=== PATIENT | male | born 1955 | race Caucasian/White ===

== ENCOUNTER → 2018-11-02 | Outpatient (CLI) | payer OTHER ==
[~2018-11-02] VITALS: Ht 177.8 cm; Wt 95.3 kg
[~2018-11-02] MED LIST: ASPIR-TRIN325 MG PO; CENTRUM SILVER1 EAC2 PO; FISH OIL 1,001000 M2 PO; HYDROCHLOROTHIA25 M2 PO; IBUPROFEN 800800 M1 PO; LIPITOR 20 MG T20 M1 PO; LISINOPRIL40 MG PO; PROTONIX40 M1 PO
[2018-11-02 13:18] VITALS: BP 144/98
--- NOTE | 2018-11-02 13:58 | NUR ---
Pain Clinic Assessment: 1. History of Osteoarthritis: Not Applicable History of Rheumatoid Arthritis: Not Applicable 2. Height: 5 ft. 10 in. 177.8 cm. Weight: 210.0 lb. oz. 95.256 kg. Patient's BMI: 30.1 3. Vital Signs: BP: 144/98 Pulse: 76 Resp: 16 Temp: 02 Sat: 97 ECG Mon: 4. Pain Intensity: 7 5. Fall Risk: Dizziness: N Needs help standing or walking: N Fallen in the last 3 months: N Fall risk comments: 6. Patient on Blood Thinner: None 7. History of Hypertension: Y 8. Opioid Therapy greater than 6 weeks: N Opiate Contract Signed: 9. Risk Assessment Tool Provided: 10. Functional Assessment Tool: 11. Recreational Drug Use: Never Drug Type: Tobacco Use: Never Smoker Tobacco Type: Amount or Packs/day: How Many Years: Alcohol Use: Yes Frequency: Special Occasions Quant: 1-2
--- NOTE | 2018-11-09 09:14 | HPC ---
[facility] [address] [place] [address] PAIN MANAGEMENT CONSULTATION Name: SHI CABRERA Room #: REG DANIELIla Villafana.#: [id number] Admission: 11/02/18 ������������������ Attend Phys: Dipak Hargrove DO Discharge: ������������������ Date of : 59 Report #: [id number] THIS REPORT FOR: //name// CC: ALONSO Zaldivar DATE OF SERVICE: 11/02/2018 CHIEF COMPLAINT: Low back pain, bilateral lower extremity pain. HISTORY OF PRESENT ILLNESS: As you know, the patient is a 63-year-old male with longstanding history of low back pain that has been present for an extended period of time. He states in August 2018, he had a change in his overall pain. He began to experience buttock pain, posterolateral thigh pain that was different from his SI joint pain he had in the past. He trialed [id number] conservative medication management, which did not provide much in the way of improvement. He continues to participate in daily physical activity, stretching exercises he learned with previous back problems. He continues that on a daily basis. He continues to experience pain to the point where he was subsequently referred to see Neurosurgery in regards to findings of recent MRI dated 10/06/2018, which showed L4-L5 severe central canal stenosis with greater than 50% loss of central canal space. It was determined at the visit with Neurosurgery that he would look towards epidural injections initially. If that did not improve the patient's overall pain, then possibly look for surgical options. He was then referred to our clinic to discuss epidural injections under fluoroscopic guidance. The patient indicates today, pain is continuous and steady with brief exacerbation of symptoms. He describes pain as burning, shocking, jolting, electrical, numbness and tingling. Places current pain score at 7/10, daily average at 8/10, worst pain has been is 8+/10. The patient states that certain movements, sudden changes, pushing and pulling tends to exacerbate symptoms. Pain is improved with sitting, lying down, repositioning and stretching. He has been referred to our service to discuss treatment options for suspected lumbar radiculopathy secondary to spinal stenosis. PAST MEDICAL HISTORY: 1. Hypertension. 2. Gallbladder disease. 3. Gastroesophageal reflux disease. 4. Dyslipidemia. PAST SURGICAL HISTORY: [facility] [address] [place] [address] PAIN MANAGEMENT CONSULTATION Name: SHI CABRERA Room #: REG SADI Oconnor#: [id number] Admission: 11/02/18 ������������������ Attend Phys: Dipak Hargrove DO Discharge: ������������������ Date of : 59 Report #: [id number] 1. Cholecystectomy. 2. Tonsillectomy. SOCIAL HISTORY: The patient denies tobacco, IV or illicit drug use. Admits to occasional alcohol beverage. 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 He is working, not receiving workmen's compensation nor is he trying to obtain disability benefits. He is not in litigation in regards to pain. He is accompanied by his present in room today. REVIEW OF SYSTEMS: Positive only for low back pain, bilateral buttock and posterolateral thigh pain, hypertension, dyslipidemia and gastroesophageal reflux disease. All other review of systems negative per 12-point review of systems other than those listed in history of present illness. Pain impact score 28/70 indicating mild to moderate interference of daily activities secondary to pain. IMAGING: MRI of lumbar spine obtained on 10/06/2018 shows L1-L2 with central disk protrusion with only mild changes of the thecal sac reduction to 1 cm. At L2-L3, there is a left central disk protrusion measuring approximately 3 mm, thecal sac measures 9 mm. L3-L4 left foraminal/far lateral herniation of 4 mm with reduction of thecal sac to 8 mm. L4-L5, there is a central disk herniation measuring 6 mm reducing the thecal sac to 6 mm, severe central canal stenosis. L5-S1 diffuse disk bulge, central canal protrusion measuring 4 mm. This leads to reduction of the canal to 8 mm. ALLERGIES: NO REPORTED DRUG ALLERGIES. CURRENT MEDICATIONS: Pantoprazole 40 mg once a day, hydrochlorothiazide 25 mg per day, lisinopril 40 mg per day, atorvastatin 20 mg per day, multivitamin 1 tablet per day, omega-3 fish oil 1 tablet per day, aspirin 325 mg per day and ibuprofen 800 mg t.i.d. PHYSICAL EXAMINATION: VITAL SIGNS: Blood pressure 144/98, pulse 76, respiratory rate 16 and unlabored. The patient is 97% on room air. Height 5 feet 10 inches tall, weight 210 pounds, BMI calculated 30.1. GENERAL: Well-developed, well-nourished, well-hydrated 63-year-old male appearing stated age, placing current pain score at 7/10. HEENT: Normocephalic, atraumatic. Pupils equal, round, reactive to light. Extraocular muscles are intact. Sclerae nonicteric without injection. NEUROLOGIC: Cranial nerves 2-12 grossly intact. Speech is fluent. The patient deemed a good historian. LUNGS: Clear. No wheeze, rhonchi or rales. CARDIOVASCULAR: Regular. No appreciable gallop, no rub. ABDOMEN: Soft. Normoactive bowel sounds. [address] [address] PAIN MANAGEMENT CONSULTATION Name: SHI CABRERA Room #: REG SADI Oconnor#: [id number] Admission: 11/02/18 ������������������ Attend Phys: Dipak Hargrove DO Discharge: ������������������ Date of : 59 Report #: [id number] EXTREMITIES: Show no clubbing, no cyanosis and no edema. MUSCULOSKELETAL: Lower extremity strength equal and symmetrical 5/5, intact to light touch from L1 through S2 dermatomes. Seated straight leg raising negative. Supine straight leg raising positive on right, mild negative left. Ankle clonus negative. Babinski's negative. Muscle bulk and tone equal and symmetrical when comparing left lower extremity to right. Deep tendon reflexes 2+/4 patella and Achilles. Lumbar provocation testing is met with increasing axial back pain. No radiation of symptoms. ASSESSMENT: 1. Symptomatic lumbar radiculopathy. 2. Spinal stenosis of lumbar spine. 3. Displacement of lumbar intervertebral disk with radiculopathy. 4. Lumbosacral spondylosis with radiculopathy. 5. Lumbar degeneration. 6. Chronic intractable pain. PLAN: 1. Based on today's physical exam and history the patient has provided, the description the patient uses in regards to pain, the factors that exacerbate symptoms and improve symptoms as well as the findings of his MRI, the likely source of the patient's pain is lumbar radiculopathy secondary to spinal stenosis noted at the L4-L5 level. We discussed with the patient treatment options for lumbar radicular symptoms based on the various treatment protocols for lumbar radiculopathy secondary to spinal stenosis. We discussed the following with the patient today as viable treatment options to treat his symptoms. We discussed physical therapy, stretching exercises, core strengthening in a formalized fashion. The patient apparently has undergone physical therapy and continues to do the activities at home. He does note some benefit with the continued activities at home. We discussed medication management, utilizing neuropathic pain medications and a consistent nonsteroidal anti-inflammatory. We discussed the epidural injections under fluoroscopic guidance for which the patient was referred to our clinic. We also discussed surgical options with the patient today. After reviewing risks and benefits of all the proposed treatment options, the patient chose to move forward with a lumbar epidural injection. 2. The patient was advised that third constitution party payer restrictions require the authorization be obtained before the patient could undergo the epidural injection under fluoroscopic guidance requested. We will begin the authorization process immediately. Once we have the authorization, we will have the patient return to undergo the first in a series of lumbar epidural injections. 3. No medication changes made at today's visit. The patient will continue current medical therapy as previously prescribed. 4. We will see the patient back in followup visit [place] [address] PAIN MANAGEMENT CONSULTATION Name: SHI CABRERA Room #: REG SADI Oconnor#: [id number] Admission: 11/02/18 ������������������ Attend Phys: Dipak Hargrove DO Discharge: ������������������ Date of : 59 Report #: [id number] authorization for the patient to undergo the requested epidural injection. 5. We wish to thank Dr. Grissom, the patient's neurosurgeon as well as the patient's nurse practitioner, Catina Coates for the opportunity to see the patient in consultation. We will keep you apprised of his response to treatment as we address his lumbar radicular symptoms secondary to spinal stenosis. Again, we wish to thank you for the opportunity to see the patient in consultation. ��������������������������������������������� <ELECTRONICALLY SIGNED> ���������������������������������������� By: Dipak Hargrove DO ��������������������������������������������� 11/09/18 0914 1711 [id number] Dipak Hargrove DO /nt
== END ==
LOC: PAIN 08:29
DX: M47.26 Other spondylosis with radiculopathy, lumbar region (principal); M48.061 Spinal stenosis, lumbar region without neurogenic claudication; M51.16 Intervertebral disc disorders with radiculopathy, lumbar region; I10 Essential (primary) hypertension; K21.9 Gastro-esophageal reflux disease without esophagitis; G89.4 Chronic pain syndrome; E78.5 Hyperlipidemia, unspecified; Z90.49 Acquired absence of other specified parts of digestive tract; Z79.82 Long term (current) use of aspirin; Z79.899 Other long term (current) drug therapy

== ENCOUNTER → 2018-11-03 | Outpatient (CLI) | payer OTHER ==
[~2018-11-03] VITALS: Ht 177.8 cm; Wt 97.7 kg
[2018-11-03 11:07] VITALS: BP 126/81
--- NOTE | 2018-11-03 11:12 | NUR ---
Pain Clinic Assessment: 1. History of Osteoarthritis: Not Applicable History of Rheumatoid Arthritis: Not Applicable 2. Height: 5 ft. 10 in. 177.8 cm. Weight: 215.4 lb. oz. 97.705 kg. Patient's BMI: 30.9 3. Vital Signs: BP: 126/81 Pulse: 73 Resp: 16 Temp: 02 Sat: 98 ECG Mon: 4. Pain Intensity: 8 5. Fall Risk: Dizziness: N Needs help standing or walking: N Fallen in the last 3 months: N Fall risk comments: 6. Patient on Blood Thinner: None 7. History of Hypertension: Y 8. Opioid Therapy greater than 6 weeks: N Opiate Contract Signed: 9. Risk Assessment Tool Provided: LOW 10. Functional Assessment Tool: 11. Recreational Drug Use: Never Drug Type: Tobacco Use: Never Smoker Tobacco Type: Amount or Packs/day: How Many Years: Alcohol Use: Yes Frequency: Special Occasions Quant:
== END | disposition home or self-care (01) ==
LOC: PAIN 06:53
DX: M51.16 Intervertebral disc disorders with radiculopathy, lumbar region (principal); M48.061 Spinal stenosis, lumbar region without neurogenic claudication; M47.27 Other spondylosis with radiculopathy, lumbosacral region; G89.29 Other chronic pain; Z79.82 Long term (current) use of aspirin; Z79.899 Other long term (current) drug therapy; Z98.890 Other specified postprocedural states

== ENCOUNTER → 2019-01-11 | Outpatient (CLI) | payer OTHER ==
[~2019-01-11] VITALS: Ht 175.3 cm; Wt 96.6 kg
[2019-01-11 12:39] VITALS: BP 153/99
--- NOTE | 2019-01-11 12:43 | NUR ---
Pain Clinic Assessment: 1. History of Osteoarthritis: DENIES History of Rheumatoid Arthritis: DENIES 2. Height: 5 ft. 9 in. 175.3 cm. Weight: 213.0 lb. oz. 96.616 kg. Patient's BMI: 31.4 3. Vital Signs: BP: 153/99 Pulse: 84 Resp: 12 Temp: 02 Sat: 100 ECG Mon: 4. Pain Intensity: 7 5. Fall Risk: Dizziness: N Needs help standing or walking: N Fallen in the last 3 months: N Fall risk comments: 6. Patient on Blood Thinner: None 7. History of Hypertension: Y 8. Opioid Therapy greater than 6 weeks: N Opiate Contract Signed: 9. Risk Assessment Tool Provided: LOW 10. Functional Assessment Tool: 11. Recreational Drug Use: Never Drug Type: Tobacco Use: Never Smoker Tobacco Type: Amount or Packs/day: How Many Years: Alcohol Use: Yes Frequency: Special Occasions Quant:
--- NOTE | 2019-01-18 08:01 | HPC ---
[facility] [place] [address] [place] [address] PAIN MANAGEMENT CONSULTATION Name: SHI CABRERA Room #: REG DANIELIla MLaurel.#: [id number] Admission: 01/11/19 Attend Phys: Dipak Hargrove DO Discharge: Date of : 59 Report #: [id number] THIS REPORT FOR: //name// CC: ALONSO Zaldivar MD DATE OF SERVICE: 01/11/2019 CHIEF COMPLAINT: Low back pain, bilateral lower extremity pain and paresthesias. HISTORY OF PRESENT ILLNESS: As you know, the patient is a 63-year-old male with longstanding history of low back pain has been present for an extended period of time. He states his pain began intermittently, but then became more consistent. He was seen in consultation per the request of his neurosurgery team on 11/02/2018, diagnosed with lumbar radiculopathy and spinal stenosis of lumbar spine. He returned the following day to undergo the first in a series of lumbar epidural injections to address lumbar radiculopathy as he was unable to undergo the procedure on the due to commitments. He underwent the epidural injection on 11/03/2018 with improvement in symptoms of greater than 90% with a slow and progressive return of symptoms. He returns today in followup visit reporting pain score of 7/10. He requests next in a series of epidural injections in hopes of building on success of previous intervention. He denies any changes in medical history or injury or trauma that may have led to continuation of symptoms. He returns to undergo next in the series of epidural injections in hopes of improving pain further. ALLERGIES: NO KNOWN DRUG ALLERGIES. CURRENT MEDICATIONS: Pantoprazole, hydrochlorothiazide, lisinopril, atorvastatin, multivitamin, omega-3 fish oil, aspirin and ibuprofen. SOCIAL HISTORY: The patient denies tobacco, IV or illicit drug use. Admits to occasional alcohol beverage. 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 IMAGING: No new imaging available. PHYSICAL EXAMINATION: VITAL SIGNS: Blood pressure 153/99, pulse 84, respiratory rate 12 and unlabored. The patient is 100% on room air. Height 5 feet 9 inches tall, weight 213 pounds, BMI calculated 31.4. GENERAL: Well-developed, well-nourished, well-hydrated 63-year-old male appearing stated age, pain is rated around 7/10. [facility] [address] [place] [address] PAIN MANAGEMENT CONSULTATION Name: SHI CABRERA Room #: REG CLI [facility].#: [id number] Admission: 01/11/19 Attend Phys: Dipak Hargrove DO Discharge: Date of : 59 Report #: [id number] HEENT: Normocephalic, atraumatic. Pupils equal, round, reactive to light. EXTREMITIES: Show no clubbing, no cyanosis, no edema. MUSCULOSKELETAL: Muscle bulk and tone is symmetrical in comparing left lower extremity to right. Strength is equal and symmetrical 5/5. Seated straight leg raising negative. Supine straight leg raising positive on the right greater than left. Gait appears normal. Lumbar provocation testing is met with mild increase in axial back pain. ASSESSMENT: 1. Symptomatic lumbar radiculopathy. 2. Severe spinal stenosis of lumbar spine. 3. Displacement of lumbar intervertebral disk with radiculopathy. 4. Lumbosacral spondylosis with radiculopathy. 5. Lumbar degeneration. 6. Chronic intractable pain. PLAN: 1. The patient returns today in followup visit to undergo the second in series of epidural injections. He reports a 90% improvement in overall pain lasting for about 2 weeks with a slow and progressive return of symptoms. He is now placing pain score at 7/10. He is requesting to undergo next in the series of epidural injections as the last month and a half has been quite well, received the 90% improvement, did reduce slowly, but never reached below 50% improvement overall. He returns hoping to build on success of this injection. He has been advised risks and benefits of procedure, states understood and wished to proceed. 2. No medication changes made at today's visit. The patient will continue current medical therapy as prior prescribed. 3. We will see the patient back in followup visit on an as needed basis for possible next in the series of epidural injections. PROCEDURE NOTE DESCRIPTION OF PROCEDURE: L5-S1 right parasagittal epidural steroid injection under fluoroscopic guidance. This is the second procedure of the first series that the patient is undergoing. After obtaining written consent, the patient was taken back to the fluoroscopy suite, placed in a prone position with pillow under the abdomen to decrease lumbar lordosis. The skin overlying the lumbosacral area was then prepped and draped in aseptic fashion. The L5-S1 vertebral interspace was then identified by AP fluoroscopy. The skin and subcutaneous tissue overlying the target site of injection was anesthetized with 3 mL 1% lidocaine. A 20 gauge 3-1/2 Tuohy needle was then advanced under fluoroscopic guidance [address] [address] PAIN MANAGEMENT CONSULTATION Name: SHI CABRERA Room #: REG SADI Oconnor#: [id number] Admission: 01/11/19 Attend Phys: Dipak Hargrove DO Discharge: Date of : 59 Report #: [id number] towards the epidural space using a right parasagittal approach. The epidural space was identified using loss of resistance to air technique. After negative aspiration for heme or cerebrospinal fluid, a total of 1 mL of Omnipaque was injected. A lumbar epidurogram was confirmed using both AP and lateral fluoroscopy. After negative aspiration for heme or cerebrospinal fluid, 5 mL of a solution containing 2 mL of 40 mg per mL, 80 mg total triamcinolone along with 3 mL lidocaine 1% was injected in increments. Contrast spread was noted posterior epidural space. The needle was then retracted approximately half way and needle tract flushed with 1 mL of 1% lidocaine. Needle was then removed. There were no apparent sensory or motor deficits in the lower extremity following the procedure. A sterile bandage was placed over the injection site. The heart rate, pulse, oximetry and blood pressure were continuously monitored after the procedure. There were no apparent complications. The patient tolerated the procedure well and was carefully escorted to the recovery room in stable condition. There were no apparent complications. After meeting discharge criteria, the patient was then discharged home. <ELECTRONICALLY SIGNED> By: Dipak Hargrove DO 01/18/19 0801 [id number] Dipak Hargrove DO /nt
== END | disposition home or self-care (01) ==
LOC: PAIN 06:50
DX: M54.5 Low back pain (principal); M51.16 Intervertebral disc disorders with radiculopathy, lumbar region; M48.061 Spinal stenosis, lumbar region without neurogenic claudication; M47.27 Other spondylosis with radiculopathy, lumbosacral region; G89.29 Other chronic pain; Z79.899 Other long term (current) drug therapy; Z79.82 Long term (current) use of aspirin; Z98.890 Other specified postprocedural states

== ENCOUNTER → 2019-03-23 | Outpatient (CLI) | payer OTHER ==
[~2019-03-23] VITALS: Ht 177.8 cm; Wt 97.5 kg
--- NOTE | ~2019-03-23 | HPC ---
[facility] [place], [place] [address] [address] PAIN MANAGEMENT CONSULTATION Name: SHI CABRERA Room #: REG SADI M.R.#: [id number] Admission: 03/23/19 Attend Phys: Dipak Hargrove DO Discharge: Date of : 59 Report #: [id number] THIS REPORT FOR: //name// CC: ALONSO Zaldivar MD DATE OF SERVICE: 03/23/2019 REFERRING PHYSICIAN: Alonso Grissom MD CHIEF COMPLAINT: Low back pain, bilateral lower extremity pain with paresthesias. HISTORY OF PRESENT ILLNESS: As you know, the patient is a 63-year-old male referred to our clinic by his neurosurgeon to trial epidural injections under fluoroscopic guidance. The patient underwent an epidural injection at our visit of 11/03/2018 with good benefit. He underwent a second epidural injection 01/21/2019 which according to the patient gave improvement of symptoms of greater than 50%, but is ongoing. He is placing his pain score today unfortunately 8/10 as he has had a progressive return of symptoms over the past 2 days. Pain is exacerbated with walking, standing, bending, lifting and activity; improves with sitting, lying down and previous epidural injections. He returns today for the third in the series of epidural injections in the 6 months. He has been advised the next available epidural injection will be 05/06/2019. He returns to undergo the next in the final in the series of epidural injections. ALLERGIES: No known drug allergies. CURRENT MEDICATIONS: Pantoprazole, hydrochlorothiazide, lisinopril, atorvastatin, multivitamin, omega-3 fish oil, aspirin and ibuprofen. SOCIAL HISTORY: The patient denies tobacco, IV or illicit drug use. Admits occasional alcohol beverage. He is working, not receiving workmen's compensation, unaccompanied today. IMAGING: No new imaging available. PHYSICAL EXAMINATION: VITAL SIGNS: Blood pressure 123/91, pulse 89, respiratory rate 16 and unlabored. The patient is 97% on room air. Height 5 feet 10 inches tall, weight 215 pounds, BMI calculated 30.8. GENERAL: Well-developed, well-nourished, well-hydrated 63-year-old male appearing stated age, pain is rated today at 8/10. [address] [address] PAIN MANAGEMENT CONSULTATION Name: SHI CABRERA [id number] Admission: 03/23/19 Attend Phys: Dipak Hargrove DO Discharge: Date of : 59 Report #: [id number] HEENT: Normocephalic, atraumatic. Pupils equal, round, reactive to light. EXTREMITIES: Show no clubbing, no cyanosis, and no edema. MUSCULOSKELETAL: Lower extremity strength remains symmetrical again today 08/08. Muscle bulk and tone is symmetrical in comparing left lower extremity to right. Seated straight leg raising is negative. Supine straight leg raising is positive on the right. This is noted to be only mild at a high angle of 80 degrees. Negative on the right. Gait appears normal. ASSESSMENT: 1. Symptomatic lumbar radiculopathy. 2. Severe central canal stenosis of lumbar spine. 3. Displacement of lumbar intervertebral disk with radiculopathy. 4. Lumbosacral spondylosis with radiculopathy. 5. Lumbar degeneration. 6. Chronic intractable pain. PLAN: 1. The patient returns today in followup visit requesting to undergo the 3rd and final in this epidural series. He has been advised risks and benefits of a lumbar epidural injection. These risks include but are not necessarily limited to bleeding, bruising, infection, worsening pain, no relief of pain, also risk of temporary or permanent muscle weakness, temporary or permanent nerve damage, possible paralysis, post-dural puncture headache and . The patient states he understood and wished to proceed. 2. No medication changes made at today's visit. The patient will continue current medical therapy as prior prescribed. 3. The patient to return to our clinic on an as needed basis for possible next in the series of epidural injections, the next available would be no earlier than 05/06/2019. PROCEDURE NOTE DESCRIPTION OF PROCEDURE: L5-S1 interlaminar epidural steroid injection under fluoroscopic guidance. This is the third procedure of the first series that the patient is undergoing. After obtaining written consent, the patient was taken back to the fluoroscopy suite, placed in a prone position with pillow under the abdomen to decrease lumbar lordosis. The skin overlying the lumbosacral area was then prepped and draped in aseptic fashion. The L5-S1 vertebral interspace was then identified by AP fluoroscopy. The skin and subcutaneous tissue overlying the target site of injection was anesthetized with 3 mL 1% lidocaine. A 20-gauge 3-1/2 inch Tuohy needle was then advanced under fluoroscopic guidance towards the epidural space using a paramedian approach. The epidural space was [address] [address] PAIN MANAGEMENT CONSULTATION Name: SHI CABRERA Room #: REG CLIla [facility]#: [id number] Admission: 03/23/19 Attend Phys: Dipak Hargrove DO Discharge: Date of : 59 Report #: [id number] identified using loss of resistance to air technique. After negative aspiration for heme or cerebrospinal fluid, a total of 1 mL of Omnipaque was injected. A lumbar epidurogram was confirmed using both AP and lateral fluoroscopy. After negative aspiration for heme or cerebrospinal fluid, 5 mL of a solution containing 2 mL of 40 mg per mL, 80 mg total triamcinolone along with 3 mL of lidocaine 1% was injected in increments. Contrast spread was noted posterior epidural space. The needle was then retracted approximately half way and needle tract flushed with 1 mL of 1% lidocaine. Needle was then removed. There were no apparent sensory or motor deficits in the lower extremity following the procedure. A sterile bandage was placed over the injection site. The heart rate, pulse, oximetry and blood pressure were continuously monitored after the procedure. There were no complications. The patient tolerated the procedure well and was carefully escorted to the recovery room in stable condition. There were no apparent complications. After meeting discharge criteria, the patient was then discharged home. By: [id number] Dipak Hargrove DO /nt
[2019-03-23 14:51] VITALS: BP 123/91
--- NOTE | 2019-03-23 15:20 | NUR ---
Pain Clinic Assessment: 1. History of Osteoarthritis: DENIES History of Rheumatoid Arthritis: DENIES 2. Height: 5 ft. 10 in. 177.8 cm. Weight: 215.0 lb. oz. 97.524 kg. Patient's BMI: 30.8 3. Vital Signs: BP: 123/91 Pulse: 89 Resp: 16 Temp: 02 Sat: 97 ECG Mon: 4. Pain Intensity: 8 5. Fall Risk: Dizziness: N Needs help standing or walking: N Fallen in the last 3 months: N Fall risk comments: 6. Patient on Blood Thinner: None 7. History of Hypertension: Y 8. Opioid Therapy greater than 6 weeks: N Opiate Contract Signed: 9. Risk Assessment Tool Provided: LOW 10. Functional Assessment Tool: 11. Recreational Drug Use: Never Drug Type: Tobacco Use: Never Smoker Tobacco Type: Amount or Packs/day: How Many Years: Alcohol Use: Yes Frequency: Quant:
== END | disposition home or self-care (01) ==
LOC: PAIN 07:04
DX: M51.16 Intervertebral disc disorders with radiculopathy, lumbar region (principal); M47.27 Other spondylosis with radiculopathy, lumbosacral region; M48.061 Spinal stenosis, lumbar region without neurogenic claudication; G89.29 Other chronic pain; Z98.890 Other specified postprocedural states; Z79.82 Long term (current) use of aspirin; Z79.899 Other long term (current) drug therapy

== ENCOUNTER → 2019-05-31 | Outpatient (CLI) | payer OTHER ==
[~2019-05-31] VITALS: Ht 177.8 cm; Wt 96.9 kg
[~2019-05-31] MED LIST changes: +NAPROXEN SODIU220 M2 PO
[2019-05-31 08:37] VITALS: BP 147/91
--- NOTE | 2019-05-31 08:46 | NUR ---
Pain Clinic Assessment: 1. History of Osteoarthritis: DENIES History of Rheumatoid Arthritis: DENIES 2. Height: 5 ft. 10 in. 177.8 cm. Weight: 213.6 lb. oz. 96.888 kg. Patient's BMI: 30.6 3. Vital Signs: BP: 147/91 Pulse: 80 Resp: 16 Temp: 02 Sat: 98 ECG Mon: 4. Pain Intensity: 8 5. Fall Risk: Dizziness: N Needs help standing or walking: N Fallen in the last 3 months: N Fall risk comments: 6. Patient on Blood Thinner: None 7. History of Hypertension: Y 8. Opioid Therapy greater than 6 weeks: N Opiate Contract Signed: 9. Risk Assessment Tool Provided: LOW 10. Functional Assessment Tool: 11. Recreational Drug Use: Never Drug Type: Tobacco Use: Never Smoker Tobacco Type: Amount or Packs/day: How Many Years: Alcohol Use: Yes Frequency: Monthly Quant: 1
--- NOTE | 2019-05-31 13:30 | HPC ---
[facility] [place] [address] [place] [address] PAIN MANAGEMENT CONSULTATION Name: SHI CABRERA Room #: REG SADI M.R.#: [id number] Admission: 05/31/19 Attend Phys: Dipak Hargrove DO Discharge: Date of : 59 Report #: [id number] THIS REPORT FOR: cc: Brock Zaldivar MD, Richard MD Johnson, James E. DO ~ THIS REPORT FOR: //name// DATE OF SERVICE: 05/31/2019 REFERRING PHYSICIAN: Dick Grissom MD CHIEF COMPLAINT: Low back pain, bilateral lower extremity pain with paresthesias. HISTORY OF PRESENT ILLNESS: As you know, the patient is a 63-year-old male with longstanding history of low back pain, bilateral lower extremity pain with paresthesias. He has undergone 2 epidural injections under fluoroscopic guidance per the request of Dr. Dick Grissom with good efficacy with each injection. The most recent injection provided 80% improvement in overall pain lasting for nearly 7 months. He returns today in followup visit with slowly progressive worsening pain, rating pain today at 8/10. He returns today in followup visit to undergo next in the series of epidural injections in hopes of building on the success of the previous injection. ALLERGIES: No known drug allergies. CURRENT MEDICATIONS: Pantoprazole, hydrochlorothiazide, lisinopril, atorvastatin, multivitamin, omega-3 fish oil, aspirin, ibuprofen, naproxen. SOCIAL HISTORY: The patient denies tobacco, IV or illicit drug use. Admits occasional alcohol beverage. 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 He is unaccompanied today. IMAGING: No new imaging available. PHYSICAL EXAMINATION: VITAL SIGNS: Blood pressure 147/91, pulse 80, respiratory rate 16 and unlabored. The patient is 98% on room air. Height 5 feet 10 inches tall, weight 213.6 pounds, BMI calculated 30.6. GENERAL: Well-developed, well-nourished, well-hydrated 63-year-old male, appearing stated age. Placing current pain score at 8/10. HEENT: Normocephalic, atraumatic. Pupils equal, round, reactive to light. EXTREMITIES: Show no clubbing, no cyanosis, and no edema. [address] [address] PAIN MANAGEMENT CONSULTATION Name: SHI CABRERA Room #: REG SADI Ledy.#: [id number] Admission: 05/31/19 Attend Phys: Dipak Hargrove DO Discharge: Date of : 59 Report #: [id number] MUSCULOSKELETAL: Lower extremity strength remains symmetrical 5/5. Muscle bulk and tone is symmetrical in comparing left lower extremity to right. Seated straight leg raising is negative. Supine straight leg raising is positive on the right. This is noted about 70-degree angle. Ankle clonus is negative. Babinski is negative. ASSESSMENT: 1. Symptomatic lumbar radiculopathy. 2. Severe central canal stenosis of the lumbar spine. 3. Displacement of lumbar intervertebral disk with radiculopathy. 4. Lumbosacral spondylosis with radiculopathy. 5. Lumbar degeneration. 6. Chronic intractable pain. PLAN: 1. The patient returns today in followup visit to undergo next in the series of lumbar epidural injections under fluoroscopic guidance. Previous injection provided 80% improvement in overall pain lasting for nearly 7 weeks. The patient returns with recurrence of pain without inciting injury or trauma. He returns to undergo next in the series of epidural injections under fluoroscopic guidance. 2. The patient has been advised risks and benefits of a repeated epidural injection. These risks include but are not necessarily limited to bleeding, bruising, infection, worsening pain, no relief of pain, also risk of temporary or permanent muscle weakness, temporary or permanent nerve damage, possible paralysis and . The patient states understood and wished to proceed. 3. No medication changes made at today's visit. The patient will continue current medical therapy as prior prescribed. 4. We will see the patient back in followup visit on an as needed basis for possible next in the series of epidural injections. We are hopeful the patient will see good and prolonged benefit with today's procedure. PROCEDURE NOTE PROCEDURE: L5-S1 right paramedian epidural steroid injection under fluoroscopic guidance. This is the third procedure of the first series that the patient is undergoing. After obtaining written consent, the patient was taken back to the fluoroscopy suite, placed in a prone position with pillow under the abdomen to decrease lumbar lordosis. The skin overlying the lumbosacral area was then prepped and draped in aseptic fashion. The L5-S1 vertebral interspace was then identified by AP fluoroscopy. The skin and subcutaneous tissue overlying the target site of injection was anesthetized with 3 mL 1% lidocaine. [address] [address] PAIN MANAGEMENT CONSULTATION Name: SAMANTHASHI CHUN Room #: REG SADI [facility]#: [id number] Admission: 05/31/19 Attend Phys: Dipak Hargrove DO Discharge: Date of : 59 Report #: [id number] A 20-gauge 3-1/2 inch Tuohy needle was then advanced under fluoroscopic guidance towards the epidural space using a right paramedian approach. The epidural space was identified using loss of resistance to air technique. After negative aspiration for heme or cerebrospinal fluid, a total of 1 mL of Omnipaque was injected. A lumbar epidurogram was confirmed using both AP and lateral fluoroscopy. After negative aspiration for heme or cerebrospinal fluid, 5 mL of a solution containing 2 mL 40 mg per mL, 80 mg total triamcinolone along with 3 mL of lidocaine 1% was injected in increments. Contrast spread was noted posterior epidural space. The needle was then retracted approximately half way and needle tract flushed with 1 mL of 1% lidocaine. Needle was then removed. There were no apparent sensory or motor deficits in the lower extremity following the procedure. A sterile bandage was placed over the injection site. The heart rate, pulse, oximetry and blood pressure were continuously monitored after the procedure. There were no apparent complications. The patient tolerated the procedure well and was carefully escorted to the recovery room in stable condition. There were no apparent complications. After meeting discharge criteria, the patient was then discharged home. <ELECTRONICALLY SIGNED> By: Dipak Hargrove DO 05/31/19 1330 [id number] Dipak Hargrove DO /nt
== END | disposition home or self-care (01) ==
LOC: PAIN 07:34
DX: M51.16 Intervertebral disc disorders with radiculopathy, lumbar region (principal); M48.061 Spinal stenosis, lumbar region without neurogenic claudication; M47.27 Other spondylosis with radiculopathy, lumbosacral region; G89.29 Other chronic pain; Z79.899 Other long term (current) drug therapy; Z79.82 Long term (current) use of aspirin; Z98.890 Other specified postprocedural states

== ENCOUNTER → 2019-08-17 | Outpatient (CLI) | payer OTHER ==
[~2019-08-17] VITALS: Ht 177.8 cm; Wt 95.3 kg
[~2019-08-17] MED LIST changes: +ACETAMINOPHEN500 M1 PO
[2019-08-17 12:45] VITALS: BP 138/86
--- NOTE | 2019-08-17 12:59 | NUR ---
Pain Clinic Assessment: 1. History of Osteoarthritis: DENIES History of Rheumatoid Arthritis: DENIES 2. Height: 5 ft. 10 in. 177.8 cm. Weight: 210.0 lb. oz. 95.256 kg. Patient's BMI: 30.1 3. Vital Signs: BP: 138/86 Pulse: 80 Resp: 16 Temp: 02 Sat: 100 ECG Mon: 4. Pain Intensity: 8 5. Fall Risk: Dizziness: N Needs help standing or walking: N Fallen in the last 3 months: N Fall risk comments: 6. Patient on Blood Thinner: None 7. History of Hypertension: Y 8. Opioid Therapy greater than 6 weeks: N Opiate Contract Signed: 9. Risk Assessment Tool Provided: LOW 10. Functional Assessment Tool: 11. Recreational Drug Use: Never Drug Type: Tobacco Use: Never Smoker Tobacco Type: Amount or Packs/day: How Many Years: Alcohol Use: Yes Frequency: Quant:
--- NOTE | 2019-08-17 14:09 | HPC ---
[address] [place] [address] PAIN MANAGEMENT CONSULTATION Name: SHI CABRERA Room #: REG SADI Ledy.#: [id number] Admission: 08/17/19 Attend Phys: Dipak Hargrove DO Discharge: Date of : 59 Report #: [id number] THIS REPORT FOR: cc: Brock Zaldivar MD,Brock Hargrove,Dipak Cannon DO ~ DATE OF SERVICE: 08/17/2019 CHIEF COMPLAINT: Low back pain, bilateral lower extremity pain with paresthesias. HISTORY OF PRESENT ILLNESS: As you know, the patient is a very pleasant 63-year-old male referred to our service by his Neurosurgeon, Dr. Dick Grissom, to undergo lumbar epidural injections under fluoroscopic guidance to address lumbar radicular symptoms. The patient has had 4 previous lumbar epidural injections all of which have provided excellent benefit. The most recent injection the patient reports 80% improvement in overall pain lasting for nearly 2 months. He returns today in followup visit, describing pain level of up to 8/10. States his pain is burning and shooting in sensation, exacerbated with bending activity, standing, twisting, improves with sitting, lying down and previous epidural injection. He returns today for the next in the series of epidural injections. He denies new injury or trauma that may have led to symptom reoccurrence. He has had no changes in medical history since our last visit. ALLERGIES: No known drug allergies. CURRENT MEDICATIONS: Acetaminophen, ibuprofen, naproxen, aspirin, omega-3 fish oil, multivitamins, atorvastatin, lisinopril, hydrochlorothiazide, pantoprazole. SOCIAL HISTORY: The patient denies tobacco, alcohol, IV or illicit drug use. 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 IMAGING: No new imaging available. PHYSICAL EXAMINATION: VITAL SIGNS: Blood pressure 138/86, pulse is 80, respiratory rate 16 and unlabored. The patient is 100% on room air. Height 5 feet 10 inches tall, weight 210 pounds, BMI calculated 30.1. GENERAL: Well-developed, well-nourished, well-hydrated 63-year-old male appearing stated age, pain is rated today around 8/10. HEENT: Normocephalic, atraumatic. Pupils equal, round, reactive. Speech fluent. EXTREMITIES: Show no clubbing, no cyanosis, no edema. [facility] [address] [place] [address] PAIN MANAGEMENT CONSULTATION Name: SHI CABRERA Room #: REG CLI [facility]#: [id number] Admission: 08/17/19 Attend Phys: Dipak Hargrove DO Discharge: Date of : 59 Report #: [id number] MUSCULOSKELETAL: Lower extremity strength is equal and symmetrical 5/5. He is intact to light touch from L1 through S2 dermatomes. Seated straight leg raising negative. Supine straight leg raising is positive, mainly on the right noted at about 65 degree angle. Ankle clonus negative. Babinski is negative. Gait is mildly antalgic favoring right lower extremity overlap. ASSESSMENT: 1. Symptomatic lumbar radiculopathy. 2. Severe central canal stenosis of lumbar spine. 3. Displacement of lumbar intervertebral disk with radiculopathy. 4. Lumbosacral spondylosis with radiculopathy. 5. Lumbar degeneration. 6. Chronic intractable pain. PLAN: 1. The patient returns today in followup visit to undergo next in the series of lumbar epidural injections. He reports 80% improvement in overall pain with previous epidural injection lasting for nearly 2 months. Unfortunately, the patient has had a recurrence of symptoms for which he is now placing pain score at 8/10. He returns today for next in the series of epidural injections. The patient has been advised risks and benefits of a lumbar epidural injection. These risks include but are not necessarily limited to bleeding, bruising, infection, worsening pain, no relief of pain, also risk of temporary or permanent muscle weakness, temporary or permanent nerve damage, possible paralysis and . The patient states understood and wishes to proceed. The patient was advised of the risks of steroid exposure during COVID outbreak. COVID-19 virus has been shown to be nonresponsive to steroids. In fact, people who have received steroids with the symptoms of COVID-19 have seen exacerbation of symptoms. The patient is also advised that steroid exposures do reduce the immune response to COVID-19 and could lead to a greater risk of contraction of the virus. The patient states he understands the risks involved with COVID virus and wishes to proceed. 2. No medication changes made at today's visit. The patient will continue current medical therapy as previously prescribed. 3 We will see the patient back in followup visit on an as needed basis for possible next in the series of epidural injections. We are hopeful the patient will see good and prolonged benefit with today's procedure. DESCRIPTION OF PROCEDURE: L5-S1 right parasagittal epidural steroid injection under fluoroscopic guidance. This is the first procedure of the second series that the patient is undergoing. After obtaining written consent, the patient was taken back to the fluoroscopy [address] [address] PAIN MANAGEMENT CONSULTATION Name: SHI CABRERA Room #: REG SADI [facility]#: [id number] Admission: 08/17/19 Attend Phys: Dipak Hargrove DO Discharge: Date of : 59 Report #: [id number] suite, placed in a prone position with pillow under the abdomen to decrease lumbar lordosis. The skin overlying the lumbosacral area was then prepped and draped in aseptic fashion. The L5-S1 vertebral interspace was then identified by AP fluoroscopy. The skin and subcutaneous tissue overlying the target site of injection was anesthetized with 3 mL 1% lidocaine. A 20 gauge 3-1/2 inch Tuohy needle was then advanced under fluoroscopic guidance towards the epidural space using a right parasagittal approach. The epidural space was identified using loss of resistance to air technique. After negative aspiration for heme or cerebrospinal fluid, a total of 1 mL of Omnipaque was injected. A lumbar epidurogram was confirmed using both AP and lateral fluoroscopy. After negative aspiration for heme or cerebrospinal fluid, 5 mL of a solution containing 2 mL 40 mg/mL 80 mg total triamcinolone along with 3 mL of lidocaine 1% was injected in increments. Contrast spread was noted post-epidural space The needle was then retracted approximately half way and needle tract flushed with 1 mL of 1% lidocaine. Needle was then removed. There were no apparent sensory or motor deficits in the lower extremity following the procedure. A sterile bandage was placed over the injection site. The heart rate, pulse, oximetry and blood pressure were continuously monitored after the procedure. There were no apparent complications. The patient tolerated the procedure well and was carefully escorted to the recovery room in stable condition. There were no apparent complications. After meeting discharge criteria, the patient was then discharged home. <ELECTRONICALLY SIGNED> By: Dipak Hargrove DO 08/17/19 1409 [id number] Dipak Hargrove DO /nt
== END | disposition home or self-care (01) ==
LOC: PAIN 06:56
DX: M51.16 Intervertebral disc disorders with radiculopathy, lumbar region (principal); M47.27 Other spondylosis with radiculopathy, lumbosacral region; M47.26 Other spondylosis with radiculopathy, lumbar region; G89.29 Other chronic pain; Z98.890 Other specified postprocedural states; Z79.899 Other long term (current) drug therapy

== ENCOUNTER → 2019-11-09 | Outpatient (CLI) | payer OTHER ==
[~2019-11-09] VITALS: Ht 177.8 cm; Wt 96.6 kg
--- NOTE | ~2019-11-09 | HPC ---
[facility] [address] [place] [address] PAIN MANAGEMENT CONSULTATION Name: SHI CABRERA Room #: REG SADI MLaurel.#: [id number] Admission: 11/09/19 Attend Phys: Dipak Hargrove DO Discharge: Date of : 59 Report #: [id number] THIS REPORT FOR: cc: Brock Zaldivar MD,Brock Hargrove,Dipak Cannon DO ~ CC: Dipak Zaldivar MD DATE OF SERVICE: 11/09/2019 CHIEF COMPLAINT: Low back pain, bilateral lower extremity pain with paresthesias. HISTORY OF PRESENT ILLNESS: As you know, the patient is a very pleasant 64-year-old male referred to our service by his neurosurgeon, Dr. Dick Grissom to undergo lumbar epidural injections under fluoroscopic guidance to address lumbar radicular symptoms that have been present for an extended period of time. The patient states the pain began, 08/04/2018 without inciting injury or trauma. The patient has noted excellent benefit with previous epidural injections, most recent epidural injection gave 90% improvement in overall pain lasting for nearly 2 months. Unfortunately, he has had a slow and progressive return of symptoms. He is now placing pain score at 8/10. States his pain is burning and shooting in sensation, exacerbated with bending activities, standing, twisting, improves with sitting, lying down and lumbar epidural injections. He returns today in followup visit for next in the series of epidural injections to address recurrent lumbar radicular pain. ALLERGIES: No known drug allergies. CURRENT MEDICATIONS: Pantoprazole, hydrochlorothiazide, lisinopril, atorvastatin, multivitamin, omega-3 fish oil, aspirin, ibuprofen, naproxen and acetaminophen. SOCIAL HISTORY: The patient denies tobacco, alcohol, IV or illicit drug use. 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 He is unaccompanied at today's visit. IMAGING: No new imaging available. PHYSICAL EXAMINATION: VITAL SIGNS: Blood pressure 128/78, pulse 86, respiratory rate 14 and unlabored. The patient is 98% on room air. Height 5 feet 10 inches tall, weight 213 pounds, BMI calculated 30.6. [facility] [address] [place] [address] PAIN MANAGEMENT CONSULTATION Name: SHI CABRERA [id number] Admission: 11/09/19 Attend Phys: Dipak Hargrove DO Discharge: Date of : 59 Report #: [id number] GENERAL: Well-developed, well-nourished, well-hydrated 64-year-old male appearing stated age, pain is rated around 8/10. HEENT: Normocephalic, atraumatic. Pupils are equal, round and reactive. NEUROLOGIC: Speech fluent. The patient deemed a good historian. EXTREMITIES: Show no clubbing, no cyanosis. No appreciable edema. MUSCULOSKELETAL: Lower extremity strength is symmetrical again today, 5/5. Muscle bulk and tone equal and symmetrical in comparing left lower extremity to right. Seated straight leg raising negative. Supine straight leg raising is mildly positive on the right. Ankle clonus negative. Babinski is negative. ASSESSMENT: 1. Symptomatic lumbar radiculopathy. 2. Severe central canal stenosis of lumbar spine. 3. Displacement of lumbar intervertebral disk with radiculopathy. 4. Lumbosacral spondylosis with radiculopathy. 5. Lumbar degeneration. 6. Chronic intractable pain. PLAN: 1. The patient returns today in followup visit having noted excellent benefit with previous epidural injection, 90% improvement in overall pain lasting for almost 2 months. Unfortunately, he has had a slow and progressive return of symptoms, now reporting pain score of 8/10 involving low back and right lower extremity. He returns for the next in the series of epidural injections under fluoroscopic guidance. The patient has been advised risks and benefits of a lumbar epidural injection. These risks include but are not necessarily limited to bleeding, bruising, infection, worsening pain, no relief of pain, temporary or permanent muscle weakness, temporary or permanent nerve damage, possible paralysis and . The patient states he understood and wished to proceed. 2. No medication changes made at today's visit. The patient will continue current medical therapy as previously prescribed. 3. We will see the patient back in followup visit on an as needed basis for possible next in the series of epidural injections. We are pleased to see the patient has done well with the epidural injections, hopeful to see continued benefit. PROCEDURE NOTE DESCRIPTION OF PROCEDURE: L5-S1 right parasagittal epidural steroid injection under fluoroscopic guidance. This is the second procedure of the second series that the patient is undergoing. After obtaining written consent, the patient was taken back to the fluoroscopy suite, placed in a prone position with pillow under the abdomen to decrease lumbar lordosis. The skin overlying the lumbosacral area was then prepped and [address] [address] PAIN MANAGEMENT CONSULTATION Name: SHI CABRERA Room #: REG SADI [place]#: [id number] Admission: 11/09/19 Attend Phys: Dipak Hargrove DO Discharge: Date of : 59 Report #: [id number] draped in aseptic fashion. The L5-S1 vertebral interspace was then identified by AP fluoroscopy. The skin and subcutaneous tissue overlying the target site of injection was anesthetized with 3 mL 1% lidocaine. A 20-gauge 3-1/2 inch Tuohy needle was then advanced under fluoroscopic guidance towards the epidural space using a right parasagittal approach. The epidural space was identified using loss of resistance to air technique. After negative aspiration for heme or cerebrospinal fluid, a total of 1 mL of Omnipaque was injected. A lumbar epidurogram was confirmed using both AP and lateral fluoroscopy. After negative aspiration for heme or cerebrospinal fluid, 5 mL of a solution containing 2 mL 40 mg per mL, 80 mg total triamcinolone along with 3 mL lidocaine 1% was injected in increments. Contrast spread was noted posterior epidural space. The needle was then retracted approximately half way and needle tract flushed with 1 mL of 1% lidocaine. Needle was then removed. There were no apparent sensory or motor deficits in the lower extremity following the procedure. A sterile bandage was placed over the injection site. The heart rate, pulse, oximetry and blood pressure were continuously monitored after the procedure. There were no apparent complications. The patient tolerated the procedure well and was carefully escorted to the recovery room in stable condition. There were no apparent complications. After meeting discharge criteria, the patient was then discharged home. By: [id number] Dipak Hargrove DO /nt
[2019-11-09 14:10] VITALS: BP 128/78
--- NOTE | 2019-11-09 14:23 | NUR ---
Pain Clinic Assessment: 1. History of Osteoarthritis: DENIES History of Rheumatoid Arthritis: DENIES 2. Height: 5 ft. 10 in. 177.8 cm. Weight: 213.0 lb. oz. 96.616 kg. Patient's BMI: 30.6 3. Vital Signs: BP: 128/78 Pulse: 86 Resp: 14 Temp: 02 Sat: 98 ECG Mon: 4. Pain Intensity: 8 5. Fall Risk: Dizziness: N Needs help standing or walking: N Fallen in the last 3 months: N Fall risk comments: 6. Patient on Blood Thinner: None 7. History of Hypertension: Y 8. Opioid Therapy greater than 6 weeks: N Opiate Contract Signed: 9. Risk Assessment Tool Provided: LOW 10. Functional Assessment Tool: 11. Recreational Drug Use: Never Drug Type: Tobacco Use: Never Smoker Tobacco Type: Amount or Packs/day: How Many Years: Alcohol Use: Yes Frequency: Monthly Quant:
== END ==
LOC: PAIN 07:04
PROVIDERS: ATTEND Anesthesiology Pain Medicine
DX: M54.5 Low back pain (principal); M47.26 Other spondylosis with radiculopathy, lumbar region; M51.16 Intervertebral disc disorders with radiculopathy, lumbar region; M48.061 Spinal stenosis, lumbar region without neurogenic claudication; G89.29 Other chronic pain; Z79.899 Other long term (current) drug therapy

== ENCOUNTER → 2020-01-17 | Outpatient (CLI) | payer OTHER ==
[~2020-01-17] VITALS: Ht 177.8 cm; Wt 94.9 kg
--- NOTE | ~2020-01-17 | HPC ---
[facility] [address] [place] [address] PAIN MANAGEMENT CONSULTATION Name: SHI CABRERA Room #: REG SADI Ledy.#: [id number] Admission: 01/17/20 Attend Phys: Dipak Hargrove DO Discharge: Date of : 59 Report #: [id number] CC: Dipak Zaldivar DATE OF SERVICE: 01/17/2020 CHIEF COMPLAINT: Low back pain, bilateral lower extremity pain and paresthesias. HISTORY OF PRESENT ILLNESS: As you know, the patient is a very pleasant 64-year-old male who returns today in followup visit per the request of his neurosurgeon, Dr. Dick Grissom to undergo a lumbar epidural injection under fluoroscopic guidance. He has noted good benefit with previous epidural injections. The most recent epidural injection provided 80% improvement in overall pain, lasting for nearly 2 months. He has had a slow and progressive return of symptoms without inciting injury or trauma. He returns today requesting next in the series of epidural injections in hopes of building on success of previous intervention. He has suffered no new changes in medical history that would preclude us from providing this injection today. ALLERGIES: No known drug allergies. CURRENT MEDICATIONS: Pantoprazole, hydrochlorothiazide, lisinopril, atorvastatin, multivitamin, docusate sodium, aspirin, ibuprofen, and acetaminophen. SOCIAL HISTORY: The patient denies tobacco, alcohol, IV or illicit drug use. 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 He is working, not receiving workmen's compensation, unaccompanied today. IMAGING: No new imaging available. PHYSICAL EXAMINATION: VITAL SIGNS: Blood pressure 123/83, pulse 80, respiratory rate 16 and unlabored. The patient is 100% on room air. Height 5 feet 10 inches tall, weight 209.2 pounds, BMI calculated 30.0. GENERAL: A well-developed, well-nourished, well-hydrated 64-year-old male appearing stated age, pain is rated today 0-7/10 depending on activity. HEENT: Normocephalic, atraumatic. Pupils equal, round and reactive. Speech remains fluent. EXTREMITIES: Show no clubbing, no cyanosis. No appreciable edema. MUSCULOSKELETAL: Seated straight leg raising remains negative. Supine straight leg raising is mildly positive on the right at about 70-degree angle. Ankle clonus negative. Babinski is negative. Gait is mildly antalgic, favoring right lower extremity over left. Stance appears normal. Muscle bulk and tone is symmetrical when comparing lower extremities. ASSESSMENT: 1. Symptomatic lumbar radiculopathy. 2. Severe central canal stenosis of lumbar spine. 3. Displacement of lumbar intervertebral disk with radiculopathy. 4. Lumbosacral spondylosis with radiculopathy. 5. Chronic intractable pain. PLAN: 1. The patient returns today in followup visit, noting 80% improvement in overall pain with the epidural injection provided at our last visit. Unfortunately, he has had a recurrence of symptoms. He returns today in followup visit requesting to undergo next in the series of epidural injections per the request of his neurosurgeon, Dr. Dick Grissom. The patient has been advised risks and benefits of the procedure. These risks include but are not necessarily limited to bleeding, bruising, infection, worsening pain, no relief of pain, also risk of temporary or permanent muscle weakness, temporary or permanent nerve damage, possible paralysis and . The patient states understood and wished to proceed. 2. No medication changes provided at today's visit. The patient will continue current medical therapy as prior prescribed. 3. We will see the patient back in followup visit for next in a series of lumbar epidural injections under fluoroscopic guidance, assuming recurrence of symptoms. PROCEDURE NOTE DESCRIPTION OF PROCEDURE: L5-S1 intralaminar epidural steroid injection under fluoroscopic guidance. This is the third procedure of the second series that the patient is undergoing. After obtaining written consent, the patient was taken back to the fluoroscopy suite, placed in a prone position with pillow under the abdomen to decrease lumbar lordosis. The skin overlying the lumbosacral area was then prepped and draped in aseptic fashion. The L5-S1 vertebral interspace was then identified by AP fluoroscopy. The skin and subcutaneous tissue overlying the target site of injection was anesthetized with 3 mL 1% lidocaine. A 20-gauge 3-1/2 inch Tuohy needle was then advanced under fluoroscopic guidance towards the epidural space using a parasagittal approach. The epidural space was identified using loss of resistance to air technique. After negative aspiration for heme or cerebrospinal fluid, a total of 1 mL of Omnipaque was injected. A lumbar epidurogram was confirmed using both AP and lateral fluoroscopy. After negative aspiration for heme or cerebrospinal fluid, 5 mL of a solution containing 2 mL 40 mg per mL, 80 mg total triamcinolone along with 3 mL of lidocaine 1% was injected in increments. Contrast spread was noted posterior epidural space. The needle was then retracted approximately half way and needle tract flushed with 1 mL of 1% lidocaine. Needle was then removed. There were no apparent sensory or motor deficits in the lower extremity following the procedure. A sterile bandage was placed over the injection site. The heart rate, pulse, oximetry and blood pressure were continuously monitored after the procedure. There were no apparent complications. The patient tolerated the procedure well and was carefully escorted to the recovery room in stable condition. There were no apparent complications. After meeting discharge criteria, the patient was then discharged home. By: [id number] Dipak Hargrove DO /nt
[2020-01-17 12:55] VITALS: BP 123/83
--- NOTE | 2020-01-17 13:16 | NUR ---
Pain Clinic Assessment: 1. History of Osteoarthritis: DENIES History of Rheumatoid Arthritis: DENIES 2. Height: 5 ft. 10 in. 177.8 cm. Weight: 209.2 lb. oz. 94.893 kg. Patient's BMI: 30.0 3. Vital Signs: BP: 123/83 Pulse: 80 Resp: 16 Temp: 02 Sat: 100 ECG Mon: 4. Pain Intensity: 0 sitting to 7 standing 5. Fall Risk: Dizziness: N Needs help standing or walking: N Fallen in the last 3 months: N Fall risk comments: 6. Patient on Blood Thinner: None 7. History of Hypertension: Y 8. Opioid Therapy greater than 6 weeks: N Opiate Contract Signed: 9. Risk Assessment Tool Provided: LOW 10. Functional Assessment Tool: 11. Recreational Drug Use: Never Drug Type: Tobacco Use: Never Smoker Tobacco Type: Amount or Packs/day: How Many Years: Alcohol Use: Yes Frequency: Quant:
== END | disposition home or self-care (01) ==
LOC: PAIN 06:52
PROVIDERS: ATTEND Anesthesiology Pain Medicine
DX: M51.16 Intervertebral disc disorders with radiculopathy, lumbar region (principal); M47.27 Other spondylosis with radiculopathy, lumbosacral region; G89.29 Other chronic pain; M48.061 Spinal stenosis, lumbar region without neurogenic claudication; Z98.890 Other specified postprocedural states; Z79.899 Other long term (current) drug therapy; Z79.82 Long term (current) use of aspirin

== ENCOUNTER → 2020-03-27 | Outpatient (CLI) | payer OTHER ==
[~2020-03-27] VITALS: Ht 177.8 cm; Wt 94.2 kg
[~2020-03-27] MED LIST changes: +VITAMIN D3-ALO1 EACH PO
[2020-03-27 08:41] VITALS: BP 125/75
--- NOTE | 2020-03-27 08:54 | NUR ---
Pain Clinic Assessment: 1. History of Osteoarthritis: DENIES History of Rheumatoid Arthritis: DENIES 2. Height: 5 ft. 10 in. 177.8 cm. Weight: 207.6 lb. oz. 94.167 kg. Patient's BMI: 29.8 3. Vital Signs: BP: 125/75 Pulse: 73 Resp: 16 Temp: 02 Sat: 100 ECG Mon: 4. Pain Intensity: 0 sitting to 8 standing 5. Fall Risk: Dizziness: N Needs help standing or walking: N Fallen in the last 3 months: N Fall risk comments: 6. Patient on Blood Thinner: None 7. History of Hypertension: Y 8. Opioid Therapy greater than 6 weeks: N Opiate Contract Signed: 9. Risk Assessment Tool Provided: LOW 10. Functional Assessment Tool: 11. Recreational Drug Use: Never Drug Type: Tobacco Use: Never Smoker Tobacco Type: Amount or Packs/day: How Many Years: Alcohol Use: Yes Frequency: Quant:
--- NOTE | 2020-03-28 11:33 | HPC ---
[facility] [address] [place] [address] PAIN MANAGEMENT CONSULTATION Name: SHI CABRERA Room #: REG SADI Ledy.#: [id number] Admission: 03/27/20 Attend Phys: Dipak Hargrove DO Discharge: Date of : 59 Report #: [id number] THIS REPORT FOR: cc: Brock Zaldivar MD,Dipak Mccallum MD, DO ~ DATE OF SERVICE: 03/27/2020 CHIEF COMPLAINT: Low back pain, bilateral lower extremity pain with paresthesias. HISTORY OF PRESENT ILLNESS: As you know, the patient is a very pleasant 64-year-old male who has returned today in followup visit to undergo next in the series of lumbar epidural injections under fluoroscopic guidance. The patient reports pain today at a level of 0-8/10 depending on activity. He has done very well with previous epidural injections, most recent gave 80% improvement in overall pain lasting for nearly 2 months. Unfortunately, his symptoms have begun to return. No inciting injury or trauma. He returns today for the next in the series of epidural injections per the request of his neurosurgeon. ALLERGIES: No known drug allergies. CURRENT MEDICATIONS: Calcium carbonate, acetaminophen, naproxen, ibuprofen, aspirin, omega-3 fish oil, multivitamin, atorvastatin, lisinopril, hydrochlorothiazide, and pantoprazole. SOCIAL HISTORY: The patient denies tobacco, alcohol, IV or illicit drug use. 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 He is unaccompanied today. IMAGING: No new imaging available. PHYSICAL EXAMINATION: VITAL SIGNS: Blood pressure 125/75, pulse 73, respiratory rate 16 and unlabored. The patient is 100% on room air. Height 5 feet 10 inches tall, weight 207.6 pounds, BMI calculated 29.8. GENERAL: Well-developed, well-nourished, well-hydrated 64-year-old male appearing stated age, pain is rated anywhere from 0-8/10. HEENT: Normocephalic, atraumatic. Pupils equal, round and reactive. NEUROLOGIC: Speech fluent. The patient is wearing a mask in compliance with COVID-19 regulations. EXTREMITIES: Show no clubbing, no cyanosis. No appreciable edema. MUSCULOSKELETAL: Lower extremity strength appears symmetrical again today 5/5. Seated straight leg raise negative. Supine straight leg raising mildly positive on the right. Bebeto's test is negative. [facility] [address] [place] [address] PAIN MANAGEMENT CONSULTATION Name: SHI CABRERA Room #: REG SADI Anastasia#: [id number] Admission: 03/27/20 Attend Phys: Dipak Hargrove DO Discharge: Date of : 59 Report #: [id number] ASSESSMENT: 1. Symptomatic lumbar radiculopathy. 2. Severe central canal stenosis of lumbar spine. 3. Displacement of lumbar intervertebral disk with radiculopathy. 4. Lumbosacral spondylosis with radiculopathy. 5. Lumbar degeneration. 6. Chronic intractable pain. PLAN: 1. The patient returns today in followup visit to undergo next in the series of lumbar epidural injections. He reports about an 80% improvement in overall pain lasting for nearly 2 months. He is very pleased with response to injection therapy. He returns today in followup visit to undergo the next in the series. The patient has been advised risks and benefits of the procedure, states understood and wished to proceed. 2. No medication changes made at today's visit. The patient will continue current medical therapy as prior prescribed. 3. We will see the patient back in followup visit on an as needed basis for the next in the series of lumbar epidural injections. We are pleased to see the patient is doing well with the injections and is able to return to majority of activities of daily living without significant pain interference with the use of these treatments. We will see him back in followup visit on an as needed basis. PROCEDURE NOTE DESCRIPTION OF PROCEDURE: L5-S1 intralaminar epidural steroid injection under fluoroscopic guidance. This is the first procedure of the third series that the patient is undergoing. After obtaining written consent, the patient was taken back to the fluoroscopy suite, placed in a prone position with pillow under the abdomen to decrease lumbar lordosis. The skin overlying the lumbosacral area was then prepped and draped in aseptic fashion. The L5-S1 vertebral interspace was then identified by AP fluoroscopy. The skin and subcutaneous tissue overlying the target site of injection was anesthetized with 3 mL 1% lidocaine. A 20-gauge 3-1/2 inch Tuohy needle was then advanced under fluoroscopic guidance towards the epidural space using a parasagittal approach. The epidural space was identified using loss of resistance to air technique. After negative aspiration for heme or cerebrospinal fluid, a total of 1 mL of Omnipaque was injected. A lumbar epidurogram was confirmed using both AP and lateral fluoroscopy. After negative aspiration for heme or cerebrospinal fluid, 5mL of a solution containing 2 mL 40 mg per mL, 80 mg total triamcinolone along with 3 mL of lidocaine 1% was injected in increments. Contrast spread was noted posterior epidural space. The needle was then retracted approximately half way [address] [address] PAIN MANAGEMENT CONSULTATION Name: SIH CABRERA Room #: REG SADI [place]#: [id number] Admission: 03/27/20 Attend Phys: Dipak Hargrove DO Discharge: Date of : 59 Report #: [id number] and needle tract flushed with 1 mL of 1% lidocaine. Needle was then removed. There were no apparent sensory or motor deficits in the lower extremity following the procedure. A sterile bandage was placed over the injection site. The heart rate, pulse, oximetry and blood pressure were continuously monitored after the procedure. There were no apparent complications. The patient tolerated the procedure well and was carefully escorted to the recovery room in stable condition. There were no apparent complications. After meeting discharge criteria, the patient was then discharged home. <ELECTRONICALLY SIGNED> By: Dipak Hargrove DO 03/28/20 [id number] Dipak Hargrove DO /nt
== END | disposition home or self-care (01) ==
LOC: PAIN 06:44
PROVIDERS: ATTEND Anesthesiology Pain Medicine
DX: M51.16 Intervertebral disc disorders with radiculopathy, lumbar region (principal); M48.061 Spinal stenosis, lumbar region without neurogenic claudication; M47.27 Other spondylosis with radiculopathy, lumbosacral region; G89.29 Other chronic pain; Z98.890 Other specified postprocedural states; Z79.899 Other long term (current) drug therapy; Z79.82 Long term (current) use of aspirin

== ENCOUNTER → 2020-08-01 | Outpatient (CLI) | payer OTHER ==
[~2020-08-01] VITALS: Ht 177.8 cm; Wt 93.9 kg
[~2020-08-01] MED LIST changes: +HYDROCHLOROTH12.5 M2 PO; +NORVASC5 MG PO
[2020-08-01 08:49] VITALS: BP 143/84
--- NOTE | 2020-08-01 08:55 | NUR ---
Pain Clinic Assessment: 1. History of Osteoarthritis: DENIES History of Rheumatoid Arthritis: DENIES 2. Height: 5 ft. 10 in. 177.8 cm. Weight: 207.0 lb. oz. 93.895 kg. Patient's BMI: 29.7 3. Vital Signs: BP: 143/84 Pulse: 103 Resp: 16 Temp: 02 Sat: 100 ECG Mon: 4. Pain Intensity: 7 5. Fall Risk: Dizziness: N Needs help standing or walking: N Fallen in the last 3 months: N Fall risk comments: 6. Patient on Blood Thinner: None 7. History of Hypertension: Y 8. Opioid Therapy greater than 6 weeks: N Opiate Contract Signed: 9. Risk Assessment Tool Provided: LOW 10. Functional Assessment Tool: 11. Recreational Drug Use: Never Drug Type: Tobacco Use: Never Smoker Tobacco Type: Amount or Packs/day: How Many Years: Alcohol Use: Yes Frequency: Monthly Quant: 1
--- NOTE | 2020-08-07 07:49 | HPC ---
[facility] [place] [address] PAIN MANAGEMENT CONSULTATION Name: SHI CABRERA Room #: REG SADI DollyEugenie.#: [id number] Admission: 08/01/20 Attend Phys: Dipak Hargrove DO Discharge: Date of : 59 Report #: [id number] THIS REPORT FOR: cc: Brock Zaldivar MD,Brock Hargrove,Dipak Cannon DO ~ DOC #: [id number] cc: Brock Zaldivar MD, MD Dipak Vincent, DATE OF SERVICE: 08/01/2020 REFERRING PHYSICIAN: Dr. Dick Grissom PRIMARY CARE PHYSICIAN: Dr. Brock Zaldivar CHIEF COMPLAINT: Low back pain, bilateral lower extremity pain with paresthesias. HISTORY OF PRESENT ILLNESS: As you know, the patient is a very pleasant 64-year-old male returning in followup visit with bilateral low back pain, bilateral buttock pain. He describes the pain as burning, shooting, radiating and electrical in sensation, places current pain score 7/10. The patient states the pain is exacerbated with standing, walking on stairs, improves with sitting, lying down, and previous epidural injections. Most recent epidural injection according to the patient gave 90% improvement in overall pain lasting for 3 months. Given the efficacy of 90% over three months, the patient returns today in followup visit to undergo the next in a series of epidural injections due to recurrent lumbar radicular symptoms. He denies any injury or trauma that may have led to symptom development. He returns today for the next in a series of lumbar epidural injections. ALLERGIES: No known drug allergies. CURRENT MEDICATIONS: Hydrochlorothiazide, amlodipine, calcium carbonate, acetaminophen, naproxen, aspirin, omega 3 fish oil, multivitamins, atorvastatin, lisinopril, and pantoprazole. SOCIAL HISTORY: The patient denies tobacco, alcohol, or IV or illicit drug use. He is unaccompanied at today's visit. IMAGING: No new imaging available. PHYSICAL EXAMINATION: VITAL SIGNS: Blood pressure 143/84, pulse 103, respiratory rate 16 unlabored. The patient 100% on room air. Height 5 feet 10 inches tall, weight 207 pounds, BMI calculated at 29.7. [facility] [address] [place] [address] PAIN MANAGEMENT CONSULTATION Name: SHI CABRERA [id number] Admission: 08/01/20 Attend Phys: Dipak Hargrove DO Discharge: Date of : 59 Report #: [id number] GENERAL: Well-developed, well-nourished, well-hydrated 63-year-old male appearing stated age. Pain is rated today at 7/10. HEENT: Normocephalic, atraumatic. Pupils are round and responsive. The patient is wearing a mask and compliance with COVID-19 regulations. EXTREMITIES: Show no clubbing, no cyanosis. No appreciable edema. MUSCULOSKELETAL: Lower extremity strength equal and symmetrical 5/5 intact to light touch from L1 through S2 dermatomes. Seated straight leg raising negative. Supine straight leg raising mildly positive with symptoms, mainly on the right at about a 70-degree angle. Ankle clonus negative. Babinski is negative. ASSESSMENT: 1. Symptomatic lumbar radiculopathy. 2. Severe and progressively worsening central canal stenosis of lumbar spine. 3. Displacement of lumbar intervertebral disk with radiculopathy. 4. Lumbosacral spondylosis with radiculopathy. 5. Lumbar degeneration. 6. Chronic intractable pain. PLAN: 1. The patient returns today in followup visit to undergo lumbar epidural injection under fluoroscopic guidance. As you are aware, the patient received 90% improvement in overall pain with the epidural injection provided at the last visit, lasting for almost 3 months. Unfortunately, his symptoms have begun to return. He is now placing his pain score 7/10, wishes to undergo the next in the series of lumbar epidural injections. He has been advised the risks and benefits of the procedure, states he understood and wished to proceed. 2. No medication changes made at today's visit. The patient will continue current medical therapy as prior prescribed. 3. We plan to see the patient back in followup visit on an as needed basis for the next in the series of epidural injections. We are hopeful the patient will continue to see good and prolonged benefit with the injections provided. PROCEDURE NOTE DESCRIPTION OF PROCEDURE: L5-S1 interlaminar epidural steroid injection under fluoroscopic guidance. This is the second procedure of the third series that the patient is undergoing. After obtaining written consent, the patient was taken back to the fluoroscopy suite, placed in a prone position with pillow under the abdomen to decrease lumbar lordosis. The skin overlying the lumbosacral area was then prepped and draped in aseptic fashion. The L5-S1 vertebral interspace was then identified by AP fluoroscopy. The skin and subcutaneous tissue overlying the target site of injection was anesthetized with 3 mL 1% lidocaine. [facility] [address] [place] [address] PAIN MANAGEMENT CONSULTATION Name: SHI CABRERA Room #: REG CLIla Oconnor#: [id number] Admission: 08/01/20 Attend Phys: Dipak Hargrove DO Discharge: Date of : 59 Report #: [id number] A 20-gauge 3-1/2 inch Tuohy needle was then advanced under fluoroscopic guidance towards the epidural space using a parasagittal approach. The epidural space was identified using loss of resistance to air technique. After negative aspiration for heme or cerebrospinal fluid, a total of 1 mL of Omnipaque was injected. A lumbar epidurogram was confirmed using both AP and lateral fluoroscopy. After negative aspiration for heme or cerebrospinal fluid, 5 mL of solution containing 2 mL, 40 mg per mL, 80 mg total triamcinolone along with 3 mL lidocaine 1% was injected in increments. Contrast spread was noted post-epidural space. The needle was then retracted approximately half way and needle tract flushed with 1 mL of lidocaine. Needle was then removed. There were no apparent sensory or motor deficits in the lower extremity following the procedure. A sterile bandage was placed over the injection site. The heart rate, pulse, oximetry and blood pressure were continuously monitored after the procedure. There were no apparent complications. The patient tolerated the procedure well and was carefully escorted to the recovery room in stable condition. There were no apparent complications. After meeting discharge criteria, the patient was then discharged home. Dipak Hargrove DO JEJ/JERRY <ELECTRONICALLY SIGNED> By: Dipak Hargrove DO 08/07/20 0749 [id number] Dipak Hargrove, DO /nt
== END | disposition home or self-care (01) ==
LOC: PAIN 07:34
PROVIDERS: ATTEND Anesthesiology Pain Medicine
DX: M51.16 Intervertebral disc disorders with radiculopathy, lumbar region (principal); M47.27 Other spondylosis with radiculopathy, lumbosacral region; M48.061 Spinal stenosis, lumbar region without neurogenic claudication; G89.29 Other chronic pain; Z98.890 Other specified postprocedural states; Z79.899 Other long term (current) drug therapy

== ENCOUNTER → 2020-11-06 | Outpatient (CLI) | payer OTHER ==
[~2020-11-06] VITALS: Ht 177.8 cm; Wt 91.1 kg
[2020-11-06 08:54] VITALS: BP 115/75
--- NOTE | 2020-11-06 08:59 | NUR ---
Pain Clinic Assessment: 1. History of Osteoarthritis: DENIES History of Rheumatoid Arthritis: DENIES 2. Height: 5 ft. 10 in. 177.8 cm. Weight: 200.8 lb. oz. 91.082 kg. Patient's BMI: 28.8 3. Vital Signs: BP: 115/75 Pulse: 80 Resp: 16 Temp: 02 Sat: 99 ECG Mon: 4. Pain Intensity: 7 5. Fall Risk: Dizziness: N Needs help standing or walking: N Fallen in the last 3 months: N Fall risk comments: 6. Patient on Blood Thinner: None 7. History of Hypertension: Y 8. Opioid Therapy greater than 6 weeks: N Opiate Contract Signed: 9. Risk Assessment Tool Provided: LOW 10. Functional Assessment Tool: 11. Recreational Drug Use: Never Drug Type: Tobacco Use: Never Smoker Tobacco Type: Amount or Packs/day: How Many Years: Alcohol Use: Yes Frequency: Quant:
--- NOTE | 2020-11-07 08:37 | HPC ---
[facility] [place] [address] PAIN MANAGEMENT CONSULTATION Name: SHI CABRERA Room #: REG SADI M.R.#: [id number] Admission: 11/06/20 Attend Phys: Dipak Hargrove DO Discharge: Date of : 59 Report #: [id number] THIS REPORT FOR: cc: Brock Zaldivar MD,Dipak Mccallum MD, DO ~ cc: Dick Grissom MD, Brock Zaldivar MD DATE OF SERVICE: 11/06/2020 CHIEF COMPLAINT: Low back pain, bilateral lower extremity pain with paresthesias. HISTORY OF PRESENT ILLNESS: As you know, the patient is a very pleasant 65-year-old male who returns today in followup visit to undergo next in the series of lumbar epidural injections under fluoroscopic guidance. The patient reports previous epidural injection provided on 08/01/2020 gave 95% improvement in overall pain lasting for almost 3 months. Unfortunately, his symptoms have reoccurred. He denies injury or trauma that may have led to symptom redevelopment. He places his pain today at around 7/10, exacerbated with activities, improves with rest and relaxation. He is very pleased with response to the epidural injection provided at our last visit, returning today to undergo next in the series. ALLERGIES: No known drug allergies. CURRENT MEDICATIONS: Pantoprazole 40 mg once a day, lisinopril 40 mg once a day, atorvastatin 20 mg per day, multivitamin 1 tab per day, aspirin 325 mg per day, ibuprofen 800 mg b.i.d., vitamin D3 1 tab per day, amlodipine 5 mg per day, hydrochlorothiazide 12.5 mg once a day. SOCIAL HISTORY: The patient denies tobacco. Denies IV or illicit drug use. Denies any chronic alcohol use. 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 IMAGING: No new imaging available. PHYSICAL EXAMINATION: VITAL SIGNS: Blood pressure 115/75, pulse 80, respiratory rate 16 and unlabored. The patient is 99% on room air. Height 5 feet 10 inches tall, weight 200.8 pounds, BMI calculated 28.8. GENERAL: Well-developed, well-nourished, well-hydrated 65-year-old male appearing stated age, pain is rated today 7/10. HEENT: Normocephalic, atraumatic. He is wearing a mask in compliance with COVID-19 regulations. EXTREMITIES: Show no clubbing, no cyanosis, no edema. [address] [address] PAIN MANAGEMENT CONSULTATION Name: SHI CABRERA Room #: REG CLI ..#: [id number] Admission: 11/06/20 Attend Phys: Dipak Hargrove DO Discharge: Date of : 59 Report #: [id number] MUSCULOSKELETAL: Lower extremity strength remains symmetrical again today 5/5. Muscle bulk and tone is symmetrical in comparing left lower extremity to right. Seated straight leg raising negative. Supine straight leg raising appears to be mildly positive on the right about 65-70 degree angle. Ankle clonus negative. Babinski is negative. ASSESSMENT: 1. Symptomatic lumbar radiculopathy. 2. Severe central canal stenosis of lumbar spine. 3. Displacement of lumbar intervertebral disk with radiculopathy. 4. Lumbosacral spondylosis with radiculopathy. 5. Lumbar degeneration. 6. Chronic intractable pain. PLAN: 1. The patient returns today in followup visit requesting to undergo lumbar epidural injection under fluoroscopic guidance. He reports a 95% improvement in overall pain with the epidural injection provided at the last visit. He is very pleased with response to that injection and having just recently began to experience recurrent symptoms. He is now placing pain at around 7/10 at its worst. He returns today to undergo next in the series of epidural injections. He has been advised risks and benefits of the procedure, states understood and wished to proceed. 2. No medication changes made at today's visit. The patient will continue current medical therapy as prior prescribed. 3. We plan to see the patient back in followup visit for the next in the series of epidural injections on an as needed basis. We are hopeful the patient will once again see good and prolonged benefit with the injection provided today. PROCEDURE NOTE DESCRIPTION OF PROCEDURE: L5-S1 interlaminar epidural steroid injection under fluoroscopic guidance. After obtaining written consent, the patient was taken back to fluoroscopy suite, placed in prone position with pillow under abdomen to decrease lumbar lordosis. Skin overlying lumbosacral area prepped and draped in aseptic fashion. The L5-S1 vertebral interspace identified by AP fluoroscopy. Skin and subcutaneous tissue overlying target site injection anesthetized with 3 mL 1% lidocaine. A 20 gauge 3-1/2 inch Tuohy needle advanced under fluoroscopic guidance towards the epidural space using a paramedian approach. Epidural space identified using loss of resistance to air technique. After negative aspiration for heme or cerebrospinal fluid, 1 mL of Omnipaque injected. Lumbar epidurogram was confirmed using both AP and lateral fluoroscopy. After negative aspiration for [address] [address] PAIN MANAGEMENT CONSULTATION Name: SHI CABRERA Room #: NINA Oconnor#: [id number] Admission: 11/06/20 Attend Phys: Dipak Hargrove DO Discharge: Date of : 59 Report #: [id number] heme or cerebrospinal fluid, 5 mL solution containing 2 mL 40 mg per mL 80 mg total triamcinolone along with 3 mL of lidocaine, 1% injected slowly. Needle retracted fci flushed with 1 mL of 1% lidocaine, then removed. Sterile bandage placed over injection site. No new motor deficits present in lower extremity following procedure. The patient tolerated the procedure well, carefully escorted to recovery room in stable condition. No apparent complications. After meeting discharge criteria, the patient discharged home. <ELECTRONICALLY SIGNED> By: Dipak Hargrove DO 11/07/20 0837 [id number] Dipak Hargrove DO /nt
== END | disposition home or self-care (01) ==
LOC: PAIN 07:01
PROVIDERS: ATTEND Anesthesiology Pain Medicine
DX: M51.16 Intervertebral disc disorders with radiculopathy, lumbar region (principal); M47.27 Other spondylosis with radiculopathy, lumbosacral region; M48.061 Spinal stenosis, lumbar region without neurogenic claudication; G89.29 Other chronic pain; Z98.890 Other specified postprocedural states; Z79.899 Other long term (current) drug therapy

== ENCOUNTER → 2021-01-09 | Outpatient (CLI) | payer OTHER ==
[~2021-01-09] VITALS: Ht 177.8 cm; Wt 90.4 kg
[~2021-01-09] MED LIST changes: -ASPIR-TRIN325 MG PO; +ASPIRIN EC325 M1 PO
--- NOTE | ~2021-01-09 | HPC ---
[facility] [place] [address] [place] [address] PAIN MANAGEMENT CONSULTATION Name: SHI CABRERA Room #: REG SADI MSteffanyEugenie.#: [id number] Admission: 01/09/21 Attend Phys: Dipak Hargrove DO Discharge: Date of : 59 Report #: [id number] THIS REPORT FOR: cc: Brock Zaldivar MD, Richard MD Johnson, James E. DO ~ cc: Dick Grissom MD DATE OF SERVICE: 01/09/2021 REFERRING PHYSICIAN: Dick Grissom MD CHIEF COMPLAINT: Low back pain, bilateral lower extremity pain with paresthesias. HISTORY OF PRESENT ILLNESS: As you know, the patient is a pleasant 65-year-old male returning in followup visit with recurrence of lumbar radiculopathy. The patient states he has done very well with previous epidural injection, stating improvement of greater than 80%, lasting until just recently where he has had a slow and progressive return of symptoms. There has been no inciting injury or trauma. The patient returns requesting a lumbar epidural injection in hopes of further benefit. He is seeing excellent benefit with the previous injections and has been able to return to the majority of his activities of daily living after the procedure. He returns today for epidural injection under fluoroscopic guidance. ALLERGIES: No known drug allergies. CURRENT MEDICATIONS: Pantoprazole, lisinopril, atorvastatin, multivitamin, omega-3 fish oil, aspirin, ibuprofen, acetaminophen, calcium carbonate, amlodipine and hydrochlorothiazide. SOCIAL HISTORY: The patient denies tobacco. Denies IV or illicit drug use. Denies any chronic alcohol use. He is working. Unaccompanied today. IMAGING: No new imaging available. PHYSICAL EXAMINATION: VITAL SIGNS: Blood pressure 125/73, pulse 80, respiratory rate 18 and unlabored. The patient 99% on room air. Height 5 feet 10 inches tall, weight 199.2 pounds, BMI calculated 28.6. GENERAL: Well-developed, well-nourished, well-hydrated 65-year-old male appearing stated age, pain is rated today 7/10. HEENT: Normocephalic, atraumatic. Pupils equal, round and responsive. He is wearing a mask in compliance with COVID-19 regulations. EXTREMITIES: Show no clubbing, no cyanosis, no edema. MUSCULOSKELETAL: Lower extremity strength equal and symmetrical today. Seated [facility] [address] [place] [address] PAIN MANAGEMENT CONSULTATION Name: SHI CABRERA Room #: REG SADI Anastasia#: [id number] Admission: 01/09/21 Attend Phys: Dipak Hargrove DO Discharge: Date of : 59 Report #: [id number] straight leg raising negative. Supine straight leg raising is positive again, appears to be more on the right and this is at about 60-degree angle. Ankle clonus negative. Babinski is negative. Deep tendon reflexes remain symmetrical at patella and Achilles. ASSESSMENT: 1. Symptomatic lumbar radiculopathy. 2. Severe central canal stenosis of lumbar spine. 3. Displacement of lumbar intervertebral disk with radiculopathy. 4. Lumbosacral spondylosis with radiculopathy. 5. Lumbar degeneration. 6. Chronic intractable pain. PLAN: 1. The patient returns today in followup visit to undergo next in the series of lumbar epidural injections under fluoroscopic guidance. The patient has done very well with previous epidural injections. Most recent giving 80% improvement in overall pain. He returns to undergo that procedure today. He has been advised risks and benefits of the procedure, states understood and wished to proceed. 2. No medication changes made at today's visit. The patient will continue current medical therapy as prior prescribed. 3. Plan to see the patient back in followup visit on an as needed basis for the next in the series of epidural injections. We are hopeful the patient will once again see good and prolonged benefit with the epidural injection provided today. PROCEDURE NOTE DESCRIPTION OF PROCEDURE: L5-S1 interlaminar epidural steroid injection under fluoroscopic guidance. After obtaining written consent, the patient was taken back to fluoroscopy suite, placed in prone position with pillow under abdomen to decrease lumbar lordosis. Skin overlying the lumbosacral area prepped and draped in aseptic fashion. The L5-S1 vertebral interspace identified by AP fluoroscopy. Skin and subcutaneous tissue overlying target site injection anesthetized with 3 mL 1% lidocaine. A 20 gauge 3-1/2 inch Tuohy needle advanced under fluoroscopic guidance towards the epidural space using a parasagittal approach. Epidural space identified using loss of resistance to air technique. After negative aspiration for heme or cerebrospinal fluid, 1 mL of Omnipaque injected. Lumbar epidurogram was confirmed using both AP and lateral fluoroscopy. After negative aspiration for heme or cerebrospinal fluid, 5 mL solution containing 2 mL, 40 mg per mL, 80 mg total triamcinolone along with 3 mL of lidocaine 1% injected slowly. Needle retracted half-way, flushed with 1 mL of 1% lidocaine, then removed. Sterile [facility] [address] [place] [address] PAIN MANAGEMENT CONSULTATION Name: SHI CABRERA Room #: REG SADI Anastasia#: [id number] Admission: 01/09/21 Attend Phys: Dipak Hargrove DO Discharge: Date of : 59 Report #: [id number] bandage placed over injection site. No new motor deficits present in lower extremity following procedure. The patient tolerated the procedure well, carefully escorted to recovery room in stable condition. No apparent complications. After meeting discharge criteria, the patient discharged home. By: [id number] Dipak Hargrove DO /nt
[2021-01-09 09:55] VITALS: BP 125/73
--- NOTE | 2021-01-09 10:03 | NUR ---
Pain Clinic Assessment: 1. History of Osteoarthritis: DENIES History of Rheumatoid Arthritis: DENIES 2. Height: 5 ft. 10 in. 177.8 cm. Weight: 199.2 lb. oz. 90.357 kg. Patient's BMI: 28.6 3. Vital Signs: BP: 125/73 Pulse: 80 Resp: 18 Temp: 02 Sat: 99 ECG Mon: 4. Pain Intensity: 7 5. Fall Risk: Dizziness: N Needs help standing or walking: N Fallen in the last 3 months: N Fall risk comments: NO CONCERNS NOTED 6. Patient on Blood Thinner: None 7. History of Hypertension: Y 8. Opioid Therapy greater than 6 weeks: N Opiate Contract Signed: 9. Risk Assessment Tool Provided: LOW 10. Functional Assessment Tool: 11. Recreational Drug Use: Never Drug Type: Tobacco Use: Never Smoker Tobacco Type: Amount or Packs/day: How Many Years: Alcohol Use: Yes Frequency: Special Occasions Quant: glass of wine or one bottle of beer
== END | disposition home or self-care (01) ==
LOC: PAIN 06:54
PROVIDERS: ATTEND Anesthesiology Pain Medicine
DX: M51.16 Intervertebral disc disorders with radiculopathy, lumbar region (principal); M47.27 Other spondylosis with radiculopathy, lumbosacral region; M48.061 Spinal stenosis, lumbar region without neurogenic claudication; G89.29 Other chronic pain; Z98.890 Other specified postprocedural states; Z79.899 Other long term (current) drug therapy

== ENCOUNTER → 2021-03-13 | Outpatient (CLI) | payer OTHER ==
[~2021-03-13] VITALS: Ht 177.8 cm; Wt 94.3 kg
[2021-03-13 11:00] VITALS: BP 120/79
--- NOTE | 2021-03-13 11:03 | NUR ---
Pain Clinic Assessment: 1. History of Osteoarthritis: DENIES History of Rheumatoid Arthritis: DENIES 2. Height: 5 ft. 10 in. 177.8 cm. Weight: 208.0 lb. oz. 94.348 kg. Patient's BMI: 29.8 3. Vital Signs: BP: 120/79 Pulse: 81 Resp: 16 Temp: 02 Sat: 96 ECG Mon: 4. Pain Intensity: 8 5. Fall Risk: Dizziness: N Needs help standing or walking: N Fallen in the last 3 months: N Fall risk comments: NO CONCERNS NOTED 6. Patient on Blood Thinner: None 7. History of Hypertension: Y 8. Opioid Therapy greater than 6 weeks: N Opiate Contract Signed: 9. Risk Assessment Tool Provided: LOW 10. Functional Assessment Tool: 11. Recreational Drug Use: Never Drug Type: Tobacco Use: Never Smoker Tobacco Type: Amount or Packs/day: How Many Years: Alcohol Use: Yes Frequency: Quant:
--- NOTE | 2021-03-15 07:27 | HPC ---
[facility] [place] [address] PAIN MANAGEMENT CONSULTATION Name: SHI CABRERA Room #: REG SADI Ledy.#: [id number] Admission: 03/13/21 Attend Phys: Dipak Hargrove DO Discharge: Date of : 59 Report #: [id number] THIS REPORT FOR: cc: Brock Zaldivar MD,Dipak Mccallum MD, DO ~ cc: Dick Grissom MD, Brock Zaldivar MD DATE OF SERVICE: 03/13/2021 REFERRING PHYSICIAN: Dick Grissom M.D. PRIMARY CARE PHYSICIAN: Brock Zaldivar M.D. CHIEF COMPLAINT: Low back pain, left lower extremity pain with paresthesias. HISTORY OF PRESENT ILLNESS: As you know, the patient is a very pleasant 65-year-old male returning in followup visit with a new onset of mainly left lower extremity pain. He states pain begins in his low back, radiates down the left side. Prior to this, the patient was experiencing mainly symptoms on the right. As you are aware, the patient has multiple changes in the lumbar region. He has distribution of symptoms that appears to be related to the L4 nerve root consistent with the findings of the imaging study dated 10/06/2018, which showed changes at the L3-L4 level with leftward disk herniation. He returns today in followup visit requesting to address this ongoing issue. He is placing pain score at 8/10. He states the pain is burning, electrical numbness and tingling when standing, walking, climbing stairs or sitting, improves with lying down and repositioning. He returns today to undergo lumbar epidural injection under fluoroscopic guidance to address L4 radiculopathy on the left. The patient denies injury or trauma that may have led to symptom development. There have been no changes in his medication management that would preclude him from undergoing an injection today. ALLERGIES: No known drug allergies. CURRENT MEDICATIONS: See chart. SOCIAL HISTORY: The patient denies tobacco. Denies IV or illicit drug use. Denies any chronic alcohol use. 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 IMAGING: No new imaging available. PHYSICAL EXAMINATION: VITAL SIGNS: Blood pressure 120/79, pulse 81, respiratory rate 16 and unlabored. The patient is 96% on room air. GENERAL: Well-developed, well-nourished, well-hydrated, 65-year-old male [address] [address] PAIN MANAGEMENT CONSULTATION Name: SHI CABRERA Room #: REG CLI [facility].#: [id number] Admission: 03/13/21 Attend Phys: Dipak Hargrove DO Discharge: Date of : 59 Report #: [id number] appearing stated age, pain is rated today at 8/10. HEENT: Normocephalic, atraumatic. Pupils are equal, round and responsive. He is wearing a mask in compliance with COVID-19 regulations and hospital policies. EXTREMITIES: Show no clubbing, no cyanosis and no appreciable edema. MUSCULOSKELETAL: Lower extremity strength is symmetrical again today 5/5. Slight giveaway strength noted with hip flexion, knee extension on the left due to increasing pain radiating from the buttock to the lateral portion of the knee. Ankle clonus negative. Babinski is negative. He is intact to light touch from L1 through S2 dermatomes. Seated straight leg raising positive on the left. Supine straight leg raising positive on the left. ASSESSMENT: 1. Symptomatic lumbar radiculopathy. 2. Severe central canal stenosis of lumbar spine. 3. Displacement of lumbar intervertebral disk with radiculopathy. 4. Lumbosacral spondylosis with radiculopathy. 5. Lumbar degeneration. 6. Chronic intractable pain. PLAN: 1. The patient returns today in followup visit requesting to treat low back pain, left lower extremity pain with paresthesias. The patient states symptoms began spontaneously. No inciting injury or trauma. As you are aware, the patient typically has right-sided symptoms due to a central canal stenosis. His distribution today appears to be related to the L4 nerve root on the left consistent with the findings at the L3-L4 level, which has had some change whether this is an inflammatory process or a new disk herniation remains to be seen. We would recommend the patient undergo a lumbar epidural injection today to address this issue. If symptoms do not improve, further imaging may be necessary to determine if surgical options are indicated. The patient is agreeable with that plan. He has been advised risks and benefits of a lumbar epidural injection, states understood and wished to proceed. 2. No medication changes made at today's visit. The patient will continue current medical therapy as prior prescribed. 3. We will see the patient back in followup visit on an as needed basis for the next in the series of lumbar epidural injections. I did advise the patient if his symptoms do not improve, we would recommend MRI of the lumbar spine for further evaluation. He will contact our clinic if symptoms do not resolve with today's procedure. DESCRIPTION OF PROCEDURE: L4-L5 left parasagittal epidural steroid injection under fluoroscopic guidance. After obtaining written consent, the patient was taken back to fluoroscopy suite, placed in prone position with pillow under abdomen to decrease lumbar lordosis. Skin overlying lumbosacral area then prepped and draped in aseptic [address] [place] [address] PAIN MANAGEMENT CONSULTATION Name: SHI CABRERA Room #: [facility] [id number] Admission: 03/13/21 Attend Phys: Dipak Hargrove DO Discharge: Date of : 59 Report #: [id number] fashion. The L4-L5 vertebral interspace identified by AP fluoroscopy. Skin and subcutaneous tissue overlying target site injection anesthetized with 3 mL of 1% lidocaine. A 20-gauge, 3-1/2-inch Tuohy needle advanced under fluoroscopic guidance towards the epidural space using a left parasagittal approach. Epidural space identified using loss of resistance to air technique. After negative aspiration for heme or cerebrospinal fluid, 1 mL of Omnipaque injected. Lumbar epidurogram was confirmed using both AP and lateral fluoroscopy. After negative aspiration for heme or cerebrospinal fluid, 5 mL of a solution containing 2 mL 40 mg per mL 80 mg total triamcinolone along with 3 mL of lidocaine, 1% injected slowly. Needle retracted group home, flushed with 1 mL of 1% lidocaine and removed. Sterile bandage placed over injection site. No new motor deficits present in the lower extremities following procedure. The patient tolerated the procedure well, carefully escorted to recovery room in stable condition. No apparent complications. After meeting discharge criteria, the patient discharged home. <ELECTRONICALLY SIGNED> By: Dipak Hargrove DO 03/15/21 0727 [id number] Dipak Hargrove DO /ivan
== END | disposition home or self-care (01) ==
LOC: PAIN 08:23
PROVIDERS: ATTEND Anesthesiology Pain Medicine
DX: M51.16 Intervertebral disc disorders with radiculopathy, lumbar region (principal); M48.061 Spinal stenosis, lumbar region without neurogenic claudication; M47.27 Other spondylosis with radiculopathy, lumbosacral region; G89.29 Other chronic pain; Z98.890 Other specified postprocedural states; Z79.899 Other long term (current) drug therapy